=== PATIENT | male | born 1970 | race Caucasian/White ===

== ENCOUNTER 2017-04-14 12:17 | Emergency (ER) | payer OTHER ==
[~2017-04-14] VITALS: Ht 193 cm; Wt 133.8 kg
[~2017-04-14 12:17] MED LIST: ACET325; ALBU90I; ALBU90I INH; ALBU90OI INH; AMOX500 PO; ASPI81CH; ASPI81EC PO; BECL40OI INH; BUPR75; Bactrim Ds Tab1 EACH PO; CEPH250A PO; CLIN300 PO; CLON.5; DIAZ5; DIPH50 PO; DOXY100 PO; DULO30; DULO30 PO; DULO60 PO; FLUSAL2505 IH; GABA300 PO; GABA800 PO; HYDACE5; HYDACE5 PO; HYDPAM25 PO; IBUP800 PO; INDO25 PO; KETO10; LIDO5TP TOP; META800; META800 PO; METCAR500 PO; Mucinex600 MG PO; NAPR500 PO; NAPR550 PO; NYSTRI30T TOP; Naprosyn500 MG PO; OLAN10 PO; OLAN5 PO; OMEP20ER; OMEP20ER PO; PANT40; PENVK250 PO; PENVK500 PO; PERM5TC TOP; PHENA100 PO; PREG300 PO; PROACE100 PO; PROC5 PO; PROP20; QUET300; QUET300 PO; RXCLIN PO; RXCYCL10 PO; RXHYDACE PO; RXPROACE PO; RXPROM25 PO; RXTRAM50 PO; TRAACE PO; TRAM50; TRAM50 PO; TRAZ100; Veetids 500500 MG PO; Zantac150 MG PO; [UNRECOGNIZED DRUG - REMARK]
[2017-04-14] MEDS ORDERED: IBUP600 PO (13:32)
[2017-04-14] MEDS ORDERED: DEXT30SU PO (13:32)
[2017-04-14] MEDS ORDERED: Prednisone20 MG PO (13:32)
== END 2017-04-14 14:15 | disposition home or self-care (01) ==
LOC: ER 12:17
DX: J06.9 Acute upper respiratory infection, unspecified (principal); B34.9 Viral infection, unspecified; Z79.899 Other long term (current) drug therapy; F32.9 Major depressive disorder, single episode, unspecified; F17.200 Nicotine dependence, unspecified, uncomplicated
CPT/HCPCS: 71046; 99283

== ENCOUNTER 2018-09-06 22:28 | Emergency (ER) | payer OTHER ==
[~2018-09-06] VITALS: Ht 193 cm; Wt 131.5 kg
[~2018-09-06 22:28] MED LIST changes: +BUPR100ER PO; +DEXT30SU PO; +FURO20 PO; +IBUP600 PO; +Prednisone20 MG PO; +ROSUVASTATIN CA20 MG PO; +Toprol Xl50 MG PO
[2018-09-06 23:14] LABS: Source, Urine Clean Catch
[2018-09-06 23:16] LABS: Bilirubin, Urine Neg (Neg); Blood, Urine 1+ (Neg); Glucose Qualitative, Urine Neg (Neg); Ketones, Urine 2+ (Neg); Leukocyte Esterase, Urine 1+ (Neg); Nitrite, Urine Neg (Neg); Protein, Urine 2+ (Neg); Urobilinogen, Urine NORM (Normal)
[2018-09-06 23:20] LABS: Appearance, Urine Clear (Clear); Color, Urine Amber (P-Yellow)
[2018-09-06 23:25] LABS: Bacteria Many /hpf; Hyaline Casts 0-2 /lpf (0-2); Mucus Mod ({null, 0-Heavy}); Red Blood Cells, Urine 0-2 /hpf (0-2); Squamous Epithelial Cells Not Seen /hpf (Few)
[2018-09-06 23:48] LABS: BASOPHILS ABSOLUTE AUTO 0.06 K/mm3 (0.00-0.23); BASOPHILS PERCENT AUTO 0 % (0-2); EOSINOPHILS ABSOLUTE AUTO 0.11 K/mm3 (0.00-0.68); EOSINOPHILS PERCENT AUTO 1 % (0-6); Hematocrit 41.9 % (37.0-53.0); Hemoglobin 14.4 g/dL (13.5-17.5); IMMATURE GRAN ABSOLUTE AUTO 0.07 K/mm3 (0.00-0.10); IMMATURE GRAN PERCENT AUTO 1 % (0-1); LYMPHOCYTES ABSOLUTE AUTO 1.71 K/mm3 (0.84-5.20); LYMPHOCYTES PERCENT AUTO 11 % (21-46); MONOCYTES ABSOLUTE AUTO 1.37 K/mm3 (0.16-1.47); MONOCYTES PERCENT AUTO 9 % (4-13); Mean Corpuscular HGB 31.5 pg (26.0-34.0); Mean Corpuscular HGB Conc 34.4 g/dL (31.5-36.5); Mean Corpuscular Volume 92 fL (80-100); Mean Platelet Volume 10.7 fL (9.1-12.4); NEUTROPHILS ABSOLUTE AUTO 12.06 K/mm3 (1.96-9.15); NEUTROPHILS PERCENT AUTO 78 % (41-73); Platelet Count 257 K/mm3 (150-400); RDW Coefficient Variation 12.3 % (11.7-14.2); RDW Standard Deviation 41.3 fL (35.1-46.3); Red Blood Cell Count 4.57 M/mm3 (4.30-5.90); White Blood Cell Count 15.38 K/mm3 (4.00-11.30)
[2018-09-07 00:03] LABS: Anion Gap 9 mmol/L (6-16); Blood Urea Nitrogen 19 mg/dL (8-24); Bun/Creatinine Ratio 17.6 (12.0-20.0); CO2, Blood 27 mmol/L (21-32); Calcium, Blood 8.7 mg/dL (8.5-10.1); Chloride, Blood 104 mmol/L (98-108); Creatinine, Blood 1.08 mg/dL (0.60-1.20); Glomerular Filtration Rate >60 (60-); Glucose, Blood 130 mg/dL (70-99); Potassium, Blood 3.3 mmol/L (3.5-5.5); Sodium, Blood 140 mmol/L (136-145)
[2018-09-07] MEDS ORDERED: CEFD300 PO (00:59)
== END 2018-09-07 03:50 | disposition home or self-care (01) ==
LOC: ER 22:28
PROVIDERS: Emergency Medicine
DX: N12 Tubulo-interstitial nephritis, not specified as acute or chronic (principal); F32.9 Major depressive disorder, single episode, unspecified; K21.9 Gastro-esophageal reflux disease without esophagitis; J45.909 Unspecified asthma, uncomplicated; Z79.899 Other long term (current) drug therapy
CPT/HCPCS: 36415; 71046; 74177; 80048; 81001; 85025; 87086; 96365-59; 96375; 99284-25; J0696; J1885; J7030; Q9967